=== PATIENT | male | born 1975 | race Caucasian/White ===

== ENCOUNTER 2020-06-14 10:12 | Emergency (ER) | payer OTHER ==
[2020-06-14 10:29] VITALS: BMI 22.9
[2020-06-14] MEDS ORDERED: SODIUM CHLORIDE 0.9% 500 ML INFUS.BAG IV ONE (10:32)
[2020-06-14 11:00] LABS: BASO % 0.9 % (0-2.0); EOS % 5.7 % (0-4.5); HEMATOCRIT 45.3 % (35.4-49); HEMOGLOBIN 15.3 GM/dl (11.7-16.9); MCH 30.3 pg (25.7-33.7); MCHC 33.8 g/dl (32.0-35.9); MEAN CELL VOLUME 89.7 fl (80-96); MEAN PLT VOLUME 8.4 fl (7.5-11.1); MONO % 6.7 % (3.8-10.2); NEUT % 59.7 % (42.8-82.8); PLATELET COUNT 180 K/MM3 (134-434); RBC 5.05 M/mm3 (4.00-5.60); RDW 12.4 % (11.9-15.9); WHITE BLOOD COUNT 3.9 K/mm3 (4.0-10.8)
[2020-06-14 11:09] LABS: ALBUMIN 4.4 g/dl (3.4-5.0); BILIRUBIN,TOTAL 1.2 mg/dl (0.2-1); CALCIUM 9.5 mg/dl (8.5-10); PHOSPHOROUS 2.6 mg/dl (2.5-4.9); POTASSIUM 4.1 mmol/L (3.5-5.1); TOT PROT 7.3 g/dl (6.4-8.2)
[2020-06-14] MEDS ORDERED: ASPIRIN 81 MG CHEWABLE TABLETS PO ONE (11:35)
[2020-06-14] MEDS ORDERED: ASPIRIN 81 MG CHEWABLE TABLETS ONE (11:38)
[2020-06-14 12:45] VITALS: BP 105/61; PULSE 65; TEMP 97.9
== END 2020-06-14 14:46 | disposition home or self-care (01) ==
LOC: FER 10:12
DX: R00.2 Palpitations (principal); R07.9 Chest pain, unspecified
CPT/HCPCS: 36415; 71046-TC-FY; 80053; 82550; 83735; 84100; 84443; 84484; 85025; 93005; 99285-25

== ENCOUNTER 2021-06-08 16:51 | Emergency (ER) | payer OTHER ==
[2021-06-08 16:56] VITALS: BP 133/88; PULSE 80; TEMP 97.9; BMI 22.6
[2021-06-08 18:08] LABS: ALBUMIN 4.4 g/dl (3.4-5.0); BILIRUBIN,TOTAL 0.8 mg/dl (0.2-1); CALCIUM 9.5 mg/dl (8.5-10); PHOSPHOROUS 2.5 mg/dl (2.5-4.9)
[2021-06-08 19:32] LABS: BASO % 0.6 % (0-2.0); EOS % 2.4 % (0-4.5); HEMATOCRIT 41.9 % (35.4-49); HEMOGLOBIN 14.2 GM/dL (11.7-16.9); LYMPH % 28.4 % (8-40); MCH 30.4 pg (25.7-33.7); MCHC 33.9 g/dl (32.0-35.9); MEAN CELL VOLUME 89.9 fl (80-96); MEAN PLT VOLUME 9.2 fl (7.5-11.1); MONO % 7.6 % (3.8-10.2); PLATELET COUNT 156 10^3/uL (134-434); RBC 4.66 M/mm3 (4.00-5.60); RDW 13.4 % (11.9-15.9); WHITE BLOOD COUNT 3.9 K/mm3 (4.0-10.0)
== END 2021-06-08 20:21 | disposition home or self-care (01) ==
LOC: FER 16:51
DX: R07.9 Chest pain, unspecified (principal)
CPT/HCPCS: 36415; 71045-TC-FY; 80053; 82550; 83735; 84100; 84443; 84484; 85025; 93005; 99285-25

== ENCOUNTER 2021-12-30 19:00 | Emergency (ER) | payer OTHER ==
[2021-12-30 19:06] VITALS: BP 122/88; PULSE 74; RESP 18; TEMP 98; BMI 22.9
[2021-12-30] MEDS ORDERED: IBUPROFEN 600 MG TABLET (FP) PO ONE ×2 (19:32→19:35)
== END 2021-12-30 20:18 | disposition home or self-care (01) ==
LOC: FER 19:00
DX: S90.02XA Contusion of left ankle, initial encounter (principal); W21.03XA Struck by baseball, initial encounter
CPT/HCPCS: 73610-TC-LT-FY; 99283-25